=== PATIENT | female | born 1990 | race Caucasian/White ===

== ENCOUNTER 2019-03-26 08:54 | Emergency (ER) | payer OTHER ==
--- OUTSIDE RECORDS SUMMARY | 2019-03-26 09:06 | XMS REPORT | Continuity of Care Document ---
:1990 External Reference #:[id number] Author Name Misty Membreno, MS, MILK INSPECTOR-C, CNM (transmitted by agent of provider Sasha Colindres) Address [address] [place] [address] Care Team Providers Name Role Phone Guilherme Spencer MD - Surgery Care Team Information Watch Assembler [phone] Tiffanie Vallejo MD - Internal Medicine Care Team Information Watch Assembler [facility] Physical Therapy/[address] Care Team Information Watch Assembler Walter Robins MD - Endocrinology, Care Team Information Watch Assembler Diabetes & Metabolism Problems Active Problems Provider Date Nausea and vomiting Solis Chu M.D. Onset: 01/19/2017 Otitis media Solis Chu M.D. Onset: 01/19/2017 Social History Type Date Description Comments Sex Unknown ETOH Use Occasionally consumes alcohol Recreational Drug Use Denies Drug Use Tobacco Use Start: Unknown End: Patient is a former per pt, smoked about smoker 3 cigarettes daily. Smoking Status Reviewed: 02/01/19 Patient is a former per pt, smoked about smoker 3 cigarettes daily. Allergies, Adverse Reactions, Alerts Description No Known Drug Allergies Medications Active Medications SIG Qnty Indications Ordering Date Provider Ergocalciferol take one a week 14caps E55.9 Ratnasingam, 02/01/2019 1.25mg MD Esther (37176 Ut) Capsules Ondansetron HCL Take every 6 30tabs R11.0 Ratnasingam, 02/01/2019 4mg hours for nausea MD Esther Tablets Diazepam Take 1 hour 1tabs F43.0 Gagen, 03/02/2018 5mg Tablets before medical MS Misty, proceedure MILK INSPECTOR-C, CNM Zinc Take one every 30caps Z71.9 Gagen, 12/17/2017 30mg Capsules day MS Misty, MILK INSPECTOR-C, CNM Vitamin C take 2 in the 60units Z71.9 Gagen, 12/17/2017 500mg Chewtabs morning MS Misty, MILK INSPECTOR-C, CNM Cyclobenzaprine HCL TK 1 T PO bid PRF Unknown 10mg MSP Tablets Omeprazole by mouth every Unknown 10mg Capsules morning DR Ibuprofen 1 tab every 8hrs Unknown 800mg Tablets as needed Medications Administered in Office Medication SIG Qnty Indications Ordering Provider Date Depomedroxyporgesterone 150MG Macarena Membrenoline, 12/17/2017 Injection , MILK INSPECTOR-C, CNM PPD Injection Tiffanie Vallejo MD 04/13/2016 Immunizations CPT Code Status Date Vaccine Lot # [id number] Given 12/05/2015 Influenza Vaccine (Fluzone) Age 3 And Older [id number] Given 09/07/2015 Tdap injection U-MCV4 Given 04/08/2011 Meningococcal MCV4,Unspecified 64005 Given 04/12/2009 Hepatitis A Vaccine Pediatric/Adolescent Dosage 2 Dose Schedule 82521 Given 04/06/2008 Hepatitis A Vaccine Pediatric/Adolescent Dosage 2 Dose Schedule 54375 Given 01/04/2007 Gardasil 46038 Given 09/13/2006 Gardasil 23588 Given 07/12/2006 Gardasil U-MCV4 Given 10/30/2005 Meningococcal MCV4,Unspecified 67141 Given 08/27/2005 Tdap injection 12235 Given 07/28/1997 MMR Vaccine, Live, For Subcutaneous Use U-DTaP Given 07/27/1997 DTaP,Unspecified U-Polio Given 07/27/1997 Polio,Unspecified U-DTaP Given 09/10/1994 DTaP,Unspecified U-Polio Given 12/04/1993 Polio,Unspecified U-HIB Given 12/04/1993 Hib,Unspecified U-DTaP Given 12/04/1993 DTaP,Unspecified 81594 Given 12/04/1993 MMR Vaccine, Live, For Subcutaneous Use U-Polio Given 1992 Polio,Unspecified U-HIB Given 1992 Hib,Unspecified U-DTaP Given 1992 DTaP,Unspecified U-Polio Given 1992 Polio,Unspecified U-HIB Given 1992 Hib,Unspecified U-DTaP Given 1992 DTaP,Unspecified Vital Signs Date Vital Result Comment 02/01/2019 10:30am BP Systolic Sitting Left Arm 118 mmHg BP Diastolic Sitting Left Arm 84 mmHg Body Temperature 98.1 F Heart Rate 77 /min Respiratory Rate 18 /min Height 65 inches 5'5" Weight 190.00 lb BMI (Body Mass Index) 31.6 kg/m2 BSA (Body Surface Area) 1.94 m2 [place] body weight in kilograms 57 kg O2 % BldC Oximetry 99 % Ra 01/24/2019 6:57am Weight 170.00 lb Results Test Acquired Date Facility Test Result H/L Range Note Vitamin B12 02/01/2019 [facility] Vitamin B12 577 pg/mL Normal 193-986 1 And Folate [address] [place], [place] [id number] [phone] Folic Acid 11.5 ng/mL Normal 3.1-17.5 Comprehensive 02/01/2019 [facility] Glucose 86 mg/dL Normal 74-106 Metabolic Panel [address] [place] [address] [phone] BUN 11 mg/dL Normal 7-18 Creatinine 0.8 mg/dL Normal 0.6-1.3 Glom Filtration Rate, Estimate >60 mL/min >60 If >60 mL/min >60 2 BUN/Creat 13.7 ratio Sodium 137 mmol/L Normal 136-145 Potassium 4.2 mmol/L Normal 3.5-5.1 Chloride 106 mmol/L Normal 98-107 Carbon Dioxide 27 mmol/L Normal 21-32 Anion Gap 4 mEq/L Low 8-16 Calcium 9.3 mg/dL Normal 8.5-10.1 Total Protein 7.7 g/dL Normal 6.4-8.2 Albumin 4.2 g/dL Normal 3.4-5.0 Globulin 3.5 g/dL Normal 1.9-4.3 Alb/Glob 1.2 ratio Bilirubin,Total 0.3 mg/dL Normal 0.2-1.0 Sgot/Ast 12 U/L Low 15-37 3 SGPT/Alt 22 U/L Normal 12-78 Alkaline Phosphatase 120 U/L High 45-117 CBC W/Automated 02/01/2019 [facility] White Blood 9.7 K/uL Normal 3.1-10.[address] [place] [address] [phone] Red Blood Count 4.34 M/uL Normal 3.90-5.40 Hemoglobin 12.6 gm/dL Normal 11.6-15.8 Hematocrit 38.6 % Normal 36.0-46.1 Mean Cell Volume 88.9 fl Normal 80.9-99.0 Mean Corpuscular HGB 29.0 pg Normal 25.9-32.7 Mean Corpuscular HGB Conc 32.6 g/dL Normal 30.8-34.3 Platelet Count 441 K/uL High 155-360 Red Cell Distri Width SD 43.7 fl Normal 36-47 Red Cell Distri Width %CV 13.4 % Normal 11.7-14.4 Mean Platelet Volume 10.2 fl Normal 8.9-12.4 Neut% 64.7 % Normal 40.4-72.8 Lymph % 25.3 % Normal 20.0-42.0 [place] % 6.4 % Normal 4.3-13.2 Eo% 2.2 % Normal 0.0-6.6 Bas% 0.8 % Normal 0.0-1.1 Immature Grans 0.6 % Normal 0.0-5.0 NRBC % 0.0 /100WBC < 10/ 100 WBC Neut# 6.30 K/uL Normal 1.8-7.0 Lymph # 2.46 K/uL Normal 1.0-4.0 [place] # 0.62 K/uL Normal 0.3-0.9 Eos # 0.21 K/uL Normal 0.0-0.5 Baso # 0.08 K/uL Normal 0.0-0.1 Immature Grans Absolute 0.06 K/uL NRBC # 0.00 K/uL Alt [facility] 01/24/2019 N2N/CCD Import Alanine 21 12-78 Aminotransferase (Alt/SGPT) Ast SerPl-cCnc 01/24/2019 N2N/CCD Import Aspartate Amino 11 Low 15-37 Transf (Ast/Sgot) Bilirub 01/24/2019 N2N/CCD Import Total Bilirubin 0.3 0.2-1.0 SerPl-nc Albumin/Glob 01/24/2019 N2N/CCD Import Albumin/Globulin 1.0 SerPl Ratio Calcium 01/24/2019 N2N/CCD Import Calcium Level 9.1 8.5-10.1 SerPl-nc Co2 SerPl-sCnc 01/24/2019 N2N/CCD Import Carbon Dioxide Level 25 21-32 Chloride 01/24/2019 N2N/CCD Import Chloride Level 108 High 98-107 SerPl-sCnc Potassium 01/24/2019 N2N/CCD Import Potassium Level 3.7 3.5-5.1 SerPl-sCnc Sodium 01/24/2019 N2N/CCD Import Sodium Level 138 136-145 SerPl-sCnc BUN/Creat SerPl 01/24/2019 N2N/CCD Import BUN/Creatinine Ratio 11.2 GFR/Bsa 01/24/2019 N2N/CCD Import Estimated GFR >60 >60 pred.black () SerPl MDRD-ArVRat GFR/Bsa 01/24/2019 N2N/CCD Import Estimated GFR >60 >60 pred.non black (Non- SerPl MDRD-ArVRat BUN SerPl-mCnc 01/24/2019 N2N/CCD Import Blood Urea Nitrogen 9 7-18 Glucose 01/24/2019 N2N/CCD Import Glucose Screen 86 74-106 [facility] Laboratory test 01/24/2019 [facility] Magnesium 2.0 Normal 1.6-2.6 [address] mg/[place] [address] [phone] Troponin-I < 0.015 ng/mL 5 Comprehensive 01/24/2019 [facility] Glucose 86 mg/dL Normal 74-106 Metabolic Panel [address] [place] [address] [phone] BUN 9 mg/dL Normal 7-18 Creatinine 0.8 mg/dL Normal 0.6-1.3 Glom Filtration Rate, Estimate >60 mL/min >60 If >60 mL/min >60 6 BUN/Creat 11.2 ratio Sodium 138 mmol/L Normal 136-145 Potassium 3.7 mmol/L Normal 3.5-5.1 Chloride 108 mmol/L High 98-107 Carbon Dioxide 25 mmol/L Normal 21-32 Anion Gap 5 mEq/L Low 8-16 Calcium 9.1 mg/dL Normal 8.5-10.1 Total Protein 8.0 g/dL Normal 6.4-8.2 Albumin 4.0 g/dL Normal 3.4-5.0 Globulin 4.0 g/dL Normal 1.9-4.3 Alb/Glob 1.0 ratio Bilirubin,Total 0.3 mg/dL Normal 0.2-1.0 Sgot/Ast 11 U/L Low 15-37 7 SGPT/Alt 21 U/L Normal 12-78 Alkaline Phosphatase 123 U/L High 45-117 1 R20.2 Z71.41 2 Note: Persistent reduction for 3 months or more in an eGFR <60 mL/min/1.73 m2 defines CKD. Patients with eGFR values >/=60 mL/min/1.73 m2 may also have CKD if evidence of persistent proteinuria is present. The original MDRD equation for estimated GFR is not valid for patients less than 18 years of age. Additional information may be found at www.kdoqi.org. 3 Values below the stated reference ranges of AST and ALT can be seen in normal populations. Clinical correlation is suggested. 4 LT HAND TINGLING GOING UP ARM 5 0.0 - 0.045 ng/mL: Normal 0.046 - 0.5 ng/mL: Suggestive 0.6 - 1.5 ng/mL: Consistent 6 Note: Persistent reduction for 3 months or more in an eGFR <60 mL/min/1.73 m2 defines CKD. Patients with eGFR values >/=60 mL/min/1.73 m2 may also have CKD if evidence of persistent proteinuria is present. The original MDRD equation for estimated GFR is not valid for patients less than 18 years of age. Additional information may be found at www.kdoqi.org. 7 Values below the stated reference ranges of AST and ALT can be seen in normal populations. Clinical correlation is suggested. Procedures Description No Information Available Medical Devices Description No Information Available Encounters Type Date Location Provider Dx Diagnosis Office Visit 02/01/2019 [facility], R20.2 Paresthesia of skin 10:30a Office MS Misty, MILK INSPECTOR-C, CNM R29.3 Abnormal posture E55.9 Vitamin D deficiency, unspecified R11.0 Nausea R51 Headache Z71.41 Alcohol abuse counseling and surveillance of alcoholic Z28.21 Immunization not carried out because of patient refusal Assessments Date Code Description Provider 02/01/2019 R20.2 Paresthesia of hand Misty Membreno, MS, MILK INSPECTOR-C, CNM 02/01/2019 R29.3 Abnormal posture Misty Membreno, MS, MILK INSPECTOR-C, CNM 02/01/2019 E55.9 Vitamin D deficiency, unspecified Haseeb, Misty, MS, MILK INSPECTOR-C, CNM 02/01/2019 R11.0 Nausea Macarena Membrenoline, MS, MILK INSPECTOR-C, CNM 02/01/2019 R51 Headache Misty Membreno, MS, MILK INSPECTOR-C, CNM 02/01/2019 Z71.41 Alcohol abuse counseling and Misty Membreno, MS, MILK INSPECTOR-C, surveillance of alcoholic CNM 02/01/2019 Z28.21 Immunization not carried out because Misty Membreno, MS , MILK INSPECTOR-C, of patient refusal CNM Plan of Treatment Future Appointment(s):02/13/2019 9:00 am - Misty Membreno, MS, MILK INSPECTOR-C, CNM at Primary Care Aqwgnc0805/03/2019 3:30 pm - Misty Membreno, MS, MILK INSPECTOR-C, CNM at Primary Care Fpiboz1102/01/2019 - Misty Membreno, MS, MILK INSPECTOR-C, CNMR20.2 Paresthesia of handComments:--labs in hospital calcium, MG, CBC wnl. Had TSH in 06/2018-nl--will need B 12, folate --Differentialdiagnosis: poor posture leading to radiculopathy CTS or epicondylitis--Will trial PT and get EMG ifnot resolved with PTReferral:[facility] Physical Therapy/[address],R29.3 Abnormal postureComments:--Discussed poor posture leading to radiculopathy --Discussed exercises--Refer to PTE55.9 Vitamin D deficiency, unspecifiedNew Medication: Ergocalciferol 1.25 mg (92024 Ut) - take one a weekNew Labs:Vitamin D,25-Hydroxy , Scheduled: 04/26/19CBC W/Automated Diff, Scheduled: 04/26/19Comprehensive Metabolic Panel, Scheduled: 04/26/19R11.0 NauseaNew Medication:Ondansetron HCL 4 mg - Take every 6 hours for nauseaComments:-- Patient does not want test after discussion--Zofran--Eleva diet, increase fluids--Monitor and RTO in 1 week for F/UR51 HeadacheComments:--Tylenol, or Motrin--Hydrate--Monitor--RTO for F/U in 1 weekZ71.41 Alcohol abuse counseling and surveillance of alcoholicComments:--alk phos was 123 in ER-- Patient admits to binge drinking on w/e -- counseled on binge tcmnwrkeU66.21 Immunization not carried out because of patient refusalComments:--Patient refused Flu vaccination today.-- Encourage good hand hygiene, Vitamin C 1 GM QDAY, Zinc 30 mg QDAYAllFollow up:-- Return to office in 3 months. Please get labs 1 week prior to office visit. -- RTO in 1 week for F/U H/A, nausea --PT for left arm possible carpal tunnel, epicondylitis Functional Status Functional Condition Comment Date Status Independent with all ADL's Active Mental Status Description No Information Available Referrals Refer to Reason for Referral Status Appt Date [facility] Physical Therapy/[place] left arm pins and needles Scheduled 02/08/2019 Ave --Differential diagnosis: poor posture leading to radiculopathy CTS or epicondylitis [address] [place] [address] [phone]
--- OUTSIDE RECORDS SUMMARY | 2019-03-26 09:06 | XMS REPORT | Continuity of Care Document ---
:1990 External Reference #:[id number] Author Name Misty Membreno, MS, SILVER SPRAY WORKER-C, CNM (transmitted by agent of provider Sasha Colindres) Address [address] [place] [address] Care Team Providers Name Role Phone Guilherme Spencer MD - Surgery Care Team Information Safety Net Maker [phone] [facility] Care Team Information Safety Net Maker Walter Robins MD - Endocrinology, Care Team Information Safety Net Maker Diabetes & Metabolism Problems Active Problems Provider Date Nausea and vomiting Solis Chu M.D. Onset: 01/19/2017 Otitis media Solis Chu M.D. Onset: 01/19/2017 Social History Type Date Description Comments Sex Unknown ETOH Use Occasionally consumes alcohol Recreational Drug Use Denies Drug Use Tobacco Use Start: Unknown End: Patient is a former per pt, smoked about smoker 3 cigarettes daily. Smoking Status Reviewed: 02/13/19 Patient is a former per pt, smoked about smoker 3 cigarettes daily. Allergies, Adverse Reactions, Alerts Description No Known Drug Allergies Medications Active Medications SIG Qnty Indications Ordering Date Provider Fluticasone Propionate 2 sprays 48gm H69.93 Ratnasingam, 02/13/2019 intranasal every MD Esther 50mcg/Act Suspension day Wrist/Thumb Wear brace while 1units R20.2 Stewart Hernandez, 02/13/2019 Splint/Left Medium at work [facility] Ergocalciferol take one a week 14caps E55.9 Ratnasingam, 02/01/2019 1.25mg MD Esther (79123 Ut) Capsules Ondansetron HCL Take every 6 30tabs R11.0 Ratnasingam, 02/01/2019 4mg hours for nausea MD Esther Tablets Diazepam Take 1 hour 1tabs F43.0 Gagen, 03/02/2018 5mg Tablets before medical MS Misty, proceedure SILVER SPRAY WORKER-Bibiana, MOHAN Zinc Take one every 30caps Z71.9 Gagen, 12/17/2017 30mg Capsules day MS Misty, SILVER SPRAY WORKER-C, MOHAN Vitamin C take 2 in the 60units Z71.9 Gagen, 12/17/2017 500mg Chewtabs morning MS Misty, SILVER SPRAY WORKER-C, MOHAN Cyclobenzaprine HCL TK 1 T PO bid PRF Unknown 10mg MSP Tablets Omeprazole by mouth every Unknown 10mg Capsules morning DR Ibuprofen 1 tab every 8hrs Unknown 800mg Tablets as needed Medications Administered in Office Medication SIG Qnty Indications Ordering Provider Date Depomedroxyporgesterone 150MG HaseebMisty, 12/17/2017 Injection KALPANA SMALL CNM PPD Injection Tiffanie Vallejo MD 04/13/2016 Immunizations CPT Code Status Date Vaccine Lot # [id number] Given 12/05/2015 Influenza Vaccine (Fluzone) Age 3 And Older [id number] Given 09/07/2015 Tdap injection U-MCV4 Given 04/08/2011 Meningococcal MCV4,Unspecified 68759 Given 04/12/2009 Hepatitis A Vaccine Pediatric/Adolescent Dosage 2 Dose Schedule 03832 Given 04/06/2008 Hepatitis A Vaccine Pediatric/Adolescent Dosage 2 Dose Schedule 26583 Given 01/04/2007 Gardasil 54850 Given 09/13/2006 Gardasil 94302 Given 07/12/2006 Gardasil U-MCV4 Given 10/30/2005 Meningococcal MCV4,Unspecified 90713 Given 08/27/2005 Tdap injection 31803 Given 07/28/1997 MMR Vaccine, Live, For Subcutaneous Use U-DTaP Given 07/27/1997 DTaP,Unspecified U-Polio Given 07/27/1997 Polio,Unspecified U-DTaP Given 09/10/1994 DTaP,Unspecified U-Polio Given 12/04/1993 Polio,Unspecified U-HIB Given 12/04/1993 Hib,Unspecified U-DTaP Given 12/04/1993 DTaP,Unspecified 66829 Given 12/04/1993 MMR Vaccine, Live, For Subcutaneous Use U-Polio Given 1992 Polio,Unspecified U-HIB Given 1992 Hib,Unspecified U-DTaP Given 1992 DTaP,Unspecified U-Polio Given 1992 Polio,Unspecified U-HIB Given 1992 Hib,Unspecified U-DTaP Given 1992 DTaP,Unspecified Vital Signs Date Vital Result Comment 02/13/2019 8:54am BP Systolic 118 mmHg BP Diastolic 78 mmHg Body Temperature 96.9 F Heart Rate 70 /min Respiratory Rate 18 /min Height 65 inches 5'5" Weight 191.00 lb BMI (Body Mass Index) 31.8 kg/m2 BSA (Body Surface Area) 1.94 m2 [place] body weight in kilograms 57 kg O2 % BldC Oximetry 100 % 02/01/2019 10:30am BP Systolic Sitting Left Arm 118 mmHg BP Diastolic Sitting Left Arm 84 mmHg Body Temperature 98.1 F Heart Rate 77 /min Respiratory Rate 18 /min Height 65 inches 5'5" Weight 190.00 lb BMI (Body Mass Index) 31.6 kg/m2 BSA (Body Surface Area) 1.94 m2 [place] body weight in kilograms 57 kg O2 % BldC Oximetry 99 % Ra Results Test Acquired Date Facility Test Result H/L Range Note Vitamin B12 02/01/2019 [facility] Vitamin B12 577 pg/mL Normal 193-986 1 And Folate [address] [place], [place] [id number] [phone] Folic Acid 11.5 ng/mL Normal 3.1-17.5 Comprehensive 02/01/2019 [facility] Glucose 86 mg/dL Normal 74-106 Metabolic Panel [address] [place] [address] [phone] BUN 11 mg/dL Normal 7-18 Creatinine 0.8 [...] 120 U/L High 45-117 CBC W/Automated 02/01/2019 [facility] White Blood 9.7 K/uL Normal 3.1-10.[address] Count [place], [place] [address] [phone] Red Blood Count 4.34 M/uL Normal 3.90-5.40 [...] 40.4-72.8 Lymph % 25.3 % Normal 20.0-42.0 [place] % 6.4 % Normal 4.3-13.2 Eo% 2.2 % Normal 0.0-6.6 Bas% 0.8 % Normal 0.0-1.1 Immature Grans 0.6 % Normal 0.0-5.0 NRBC % 0.0 /100WBC < 10/ 100 WBC Neut# 6.30 K/uL Normal 1.8-7.0 Lymph # 2.46 K/uL Normal 1.0-4.0 [place] # 0.62 K/uL Normal 0.3-0.9 Eos # 0.21 K/uL Normal 0.0-0.5 Baso # 0.08 K/uL Normal 0.0-0.1 Immature Grans Absolute 0.06 K/uL NRBC # 0.00 K/uL Alt SerPl-cCnc 01/24/2019 N2N/CCD Import Alanine 21 12-78 Aminotransferase (Alt/SGPT) Ast SerPl-cCnc 01/24/2019 N2N/CCD Import Aspartate Amino 11 Low 15-37 Transf (Ast/Sgot) Bilirub 01/24/2019 N2N/CCD Import Total Bilirubin 0.3 0.2-1.0 SerPl-nc Albumin/Glob 01/24/2019 N2N/CCD Import Albumin/Globulin 1.0 SerPl Ratio Calcium 01/24/2019 N2N/CCD Import Calcium Level 9.1 8.5-10.1 SerP-nc Co2 SerPl-sCnc 01/24/2019 N2N/CCD Import Carbon Dioxide [...] 01/24/2019 N2N/CCD Import Glucose Screen 86 74-106 SerPl-nc Laboratory test 01/24/2019 [facility] Magnesium 2.0 Normal 1.6-2.6 [address] mg/[place] [address] [phone] Troponin-I < 0.015 ng/mL 5 Comprehensive 01/24/2019 [facility] Glucose 86 mg/dL Normal 74-106 Metabolic Panel [address] [place] [address] [phone] BUN 9 mg/dL Normal 7-18 Creatinine 0.8 [...] Haseeb, R20.2 Paresthesia of skin 10:30a Office Misty, MS, SILVER SPRAY WORKER-C, CNM R29.3 Abnormal posture E55.9 Vitamin D deficiency, unspecified R11.0 Nausea R51 Headache Z71.41 Alcohol abuse counseling and surveillance of alcoholic Z28.21 Immunization not carried out because of patient refusal Assessments Date Code Description Provider 02/13/2019 R20.2 Paresthesia of hand Gagen, Misty, MS, SILVER SPRAY WORKER-C, CNM 02/13/2019 E55.9 Vitamin D deficiency, unspecified Gagen, Misty, MS, SILVER SPRAY WORKER-C, CNM 02/13/2019 R11.0 Nausea Gagen, Misty, MS, SILVER SPRAY WORKER-C, CNM 02/13/2019 R51 Headache Gagen, Misty, MS, SILVER SPRAY WORKER-C, CNM 02/13/2019 H69.93 Unspecified Eustachian tube Gagen, Misty, MS, SILVER SPRAY WORKER-C, disorder, bilateral CNM 02/13/2019 Z71.41 Alcohol abuse counseling and Gagen, Misty, MS, SILVER SPRAY WORKER-C, surveillance of alcoholic CNM 02/01/2019 R20.2 Paresthesia of hand Gagen, Misty, MS, SILVER SPRAY WORKER-C, CNM 02/01/2019 R29.3 Abnormal posture Gagen, Misty, MS, SILVER SPRAY WORKER-C, CNM 02/01/2019 E55.9 Vitamin D deficiency, unspecified Gagen, Misty, MS, SILVER SPRAY WORKER-C, CNM 02/01/2019 R11.0 Nausea Gagen, Misty, MS, SILVER SPRAY WORKER-C, CNM 02/01/2019 R51 Headache Gagen, Misty, MS, SILVER SPRAY WORKER-C, CNM 02/01/2019 Z71.41 Alcohol abuse counseling and Gagen, Misty, MS, SILVER SPRAY WORKER-C, surveillance of alcoholic CNM 02/01/2019 Z28.21 Immunization not carried out because Misty Membreno, MS , SILVER SPRAY WORKER-C, of patient refusal CNM Plan of Treatment Future Appointment(s):03/27/2019 10:30 am - Misty Membreno, MS, SILVER SPRAY WORKER-C, CNM at Primary Care Mquqaa4705/03/2019 3:30 pm - Misty Membreno, MS, SILVER SPRAY WORKER-C, CNM at Primary Care [id number]/13/2019 - Misty Membreno, MS, SILVER SPRAY WORKER-C, CNMR20.2 Paresthesia of handNew Medication:Wrist/Thumb Splint/Left Medium - Wear brace while at workComments:--labs in hospital calcium, MG, CBC wnl. Had TSH in 06/2018 -nl-- B 12, folate normal. TSH on 07/05 was 1.250--Differential diagnosis: poor posture leading to radiculopathy CTS or epicondylitis--Will trial PT appointment is made on [address]--Will get EMG if not resolved with PTE55.9 Vitamin D deficiency, unspecifiedComments:--Uncontrolled, continue High dose vitamin D --Vitamin D in 07/05/2018 was 1.25R11.0 NauseaComments:-- Patient does not want test after discussion--Controlled, continue Zofran prn-- [place] diet, increase fluids--[id number] HeadacheComments:--Tylenol, Motrin, Excedrin --Hydrate--Monitor --If "worse H/A ever" go to ER--Had eye exam in nov 2018H69.93 Unspecified Eustachian tube disorder, bilateralNew Medication: Fluticasone Propionate 50 mcg/Act - 2 sprays intranasal every dayComments:-- Sudafed or krpsqhuwG19.41 Alcohol abuse counseling and surveillance of alcoholicComments:--Counseled--Will monitorAllFollow up:RTO in 6 weeks for F/U Functional Status Functional Condition Comment Date Status Independent with all ADL's Active Mental Status Description No Information Available Referrals Refer to Reason for Referral Status Appt Date [facility] Physical Therapy/[place] left arm pins and needles Scheduled 02/08/2019 Ave --Differential diagnosis: poor posture leading to radiculopathy CTS or epicondylitis [address] [place] [address] [phone]
--- OUTSIDE RECORDS SUMMARY | 2019-03-26 09:06 | XMS REPORT | Continuity of Care Document ---
:1990 External Reference #:[id number] Author Name Misty Membreno, MS, FLANGING MACHINE OPERATOR-C, CNM (transmitted by agent of provider Sasha Colindres) Address [address] [place] [address] Care Team Providers Name Role Phone Guilherme Spencer MD - Surgery Care Team Information Reexaminer [phone] Tiffanie Vallejo MD - Internal Medicine Care Team Information Reexaminer [phone] [facility] Physical Therapy/[address] Care Team Information Reexaminer [phone] Walter Robins MD - Endocrinology, Care Team Information Reexaminer Diabetes & Metabolism Problems Active Problems Provider [...] sprays 48gm H69.93 Ratnasingam, 02/13/2019 intranasal every Shamanthy, 50mcg/Act Suspension day Wrist/Thumb Wear brace while 1units R20.2 Stewart Hernandez, 02/13/2019 Splint/Left Medium at work MD Cameron Ergocalciferol take one a week 14caps E55.9 Ratnasingam, 02/01/2019 1.25mg MD Esther ([address] Ut) Capsules Ondansetron HCL Take every 6 30tabs R11.0 Ratnasingam, 02/01/2019 4mg hours for nausea MD Esther Tablets Diazepam Take 1 hour 1tabs F43.0 Gagen, 03/02/2018 5mg Tablets before medical MS Misty, proceedure FLANGING MACHINE OPERATOR-MOHAN Mccarty Zinc Take one every 30caps Z71.9 Gagen, 12/17/2017 30mg Capsules day MS Misty, FLANGING MACHINE OPERATOR-CMOHAN Vitamin C take 2 in the 60units Z71.9 Gagen, 12/17/2017 500mg Chewtabs morning MS Misty FLANGING MACHINE OPERATOR-MOHAN Mccarty Cyclobenzaprine HCL TK 1 T PO bid PRF Unknown 10mg MSP Tablets Omeprazole by mouth every Unknown 10mg Capsules morning Ibuprofen 1 tab every 8hrs Unknown 800mg Tablets as needed Medications Administered in Office Medication SIG Qnty Indications Ordering Provider Date Depomedroxyporgesterone 150MG Misty Membreno, 12/17/2017 Injection KALPANA SMALL CNM PPD Injection Tiffanie Vallejo MD 04/13/2016 Immunizations CPT Code Status Date Vaccine Lot # [id number] Given 12/05/2015 Influenza Vaccine (Fluzone) Age 3 And Older [id number] 83972 Given 09/07/2015 Tdap injection U-MCV4 Given 04/08/2011 Meningococcal MCV4,Unspecified 83000 Given 04/12/2009 Hepatitis A Vaccine Pediatric/Adolescent Dosage 2 Dose Schedule 44571 Given 04/06/2008 Hepatitis A Vaccine Pediatric/Adolescent Dosage 2 Dose Schedule 46469 Given 01/04/2007 Gardasil 34064 Given 09/13/2006 Gardasil 22138 Given 07/12/2006 Gardasil U-MCV4 Given 10/30/2005 Meningococcal MCV4,Unspecified 25021 Given 08/27/2005 Tdap injection 52914 Given 07/28/1997 MMR Vaccine, Live, For Subcutaneous Use U-DTaP Given 07/27/1997 DTaP,Unspecified U-Polio Given 07/27/1997 Polio,Unspecified U-DTaP Given 09/10/1994 DTaP,Unspecified U-Polio Given 12/04/1993 Polio,Unspecified U-HIB Given 12/04/1993 Hib,Unspecified U-DTaP Given 12/04/1993 DTaP,Unspecified 59881 Given 12/04/1993 MMR Vaccine, Live, For Subcutaneous [...] kg/m2 BSA (Body Surface Area) 1.94 m2 [place] body weight in kilograms 57 kg O2 % BldC Oximetry 100 % 02/01/2019 10:30am BP Systolic Sitting Left Arm 118 mmHg BP Diastolic Sitting Left Arm 84 mmHg Body Temperature 98.1 F Heart Rate 77 /min Respiratory Rate 18 /min Height 65 inches 5'5" Weight 190.00 lb BMI (Body Mass Index) 31.6 kg/m2 BSA (Body Surface Area) 1.94 m2 [place] body weight in kilograms 57 kg O2 % BldC Oximetry 99 % Ra Results Test Acquired Date Facility Test Result H/L Range Note Vitamin B12 02/01/2019 [facility] Vitamin B12 577 pg/mL Normal 193-986 1 And Folate [address] [place], [place] [id number] [phone] Folic Acid 11.5 ng/mL Normal 3.1-17.5 Comprehensive 02/01/2019 [facility] Glucose 86 mg/dL Normal 74-106 Metabolic Panel [address] [place], [place] [id number] [phone] BUN 11 mg/dL Normal 7-18 Creatinine 0.8 [...] 120 U/L High 45-117 CBC W/Automated 02/01/2019 [facility] White Blood 9.7 K/uL Normal 3.1-10.[address] Count [place], [place] [id number] [phone] Red Blood Count 4.34 M/uL Normal 3.90-5.40 [...] 40.4-72.8 Lymph % 25.3 % Normal 20.0-42.0 [place] % 6.4 % Normal 4.3-13.2 Eo% 2.2 % Normal 0.0-6.6 Bas% 0.8 % Normal 0.0-1.1 Immature Grans 0.6 % Normal 0.0-5.0 NRBC % 0.0 /100WBC < 10/ 100 WBC Neut# 6.30 K/uL Normal 1.8-7.0 Lymph # 2.46 K/uL Normal 1.0-4.0 [place] # 0.62 K/uL Normal 0.3-0.9 Eos # [...] 01/24/2019 N2N/CCD Import Glucose Screen 86 74-[facility] 01/24/2019 [facility] Magnesium 2.0 Normal 1.6-2.6 [address] mg/dL [place], [place] [address] [phone] Troponin-I < 0.015 ng/mL 5 Comprehensive 01/24/2019 [facility] Glucose 86 mg/dL Normal 74-106 Metabolic Panel [address] [place] [address] [phone] BUN 9 mg/dL Normal 7-18 Creatinine 0.8 [...] Dx Diagnosis Office Visit 02/01/2019 [facility] Gagen, R20.2 Paresthesia of skin 10:30a Office Misty, MS, FLANGING MACHINE OPERATOR-C, CNM R29.3 Abnormal posture E55.9 Vitamin D deficiency, unspecified R11.0 Nausea R51 Headache Z71.41 Alcohol abuse counseling and surveillance of alcoholic Z28.21 Immunization not carried out because of patient refusal Assessments Date Code Description Provider 02/13/2019 R20.2 Paresthesia of hand Gagen, Misty, MS, FLANGING MACHINE OPERATOR-C, CNM 02/13/2019 E55.9 Vitamin D deficiency, unspecified Gagen, Misty, MS, FLANGING MACHINE OPERATOR-C, CNM 02/13/2019 R11.0 Nausea Gagen, Misty, MS, FLANGING MACHINE OPERATOR-C, CNM 02/13/2019 R51 Headache Gagen, Misty, MS, FLANGING MACHINE OPERATOR-C, CNM 02/13/2019 H69.93 Unspecified Eustachian tube Gagen, Misty, MS, FLANGING MACHINE OPERATOR-C, disorder, bilateral CNM 02/13/2019 Z71.41 Alcohol abuse counseling and Gagen, Misty, MS, FLANGING MACHINE OPERATOR-C, surveillance of alcoholic CNM 02/01/2019 R20.2 Paresthesia of hand Gagen, Misty, MS, FLANGING MACHINE OPERATOR-C, CNM 02/01/2019 R29.3 Abnormal posture Gagen, Misty, MS, FLANGING MACHINE OPERATOR-C, CNM 02/01/2019 E55.9 Vitamin D deficiency, unspecified Gagen, Misty, MS, FLANGING MACHINE OPERATOR-C, CNM 02/01/2019 R11.0 Nausea Gagen, Misty, MS, FLANGING MACHINE OPERATOR-C, CNM 02/01/2019 R51 Headache Gagen, Misty, MS, FLANGING MACHINE OPERATOR-C, CNM 02/01/2019 Z71.41 Alcohol abuse counseling and Haseeb Misty, MS, FLANGING MACHINE OPERATOR-C, surveillance of alcoholic CNM 02/01/2019 Z28.21 Immunization not carried out because Haseeb Misty, MS , FLANGING MACHINE OPERATOR-C, of patient refusal CNM Plan of Treatment Future Appointment(s):03/27/2019 10:30 am - Misty Membreno, MS, FLANGING MACHINE OPERATOR-C, CNM at Primary Care [id number]/03/2019 3:30 pm - Misty Membreno, MS, FLANGING MACHINE OPERATOR-C, CNM at Primary Care [id number]/13/2019 - Misty Membreno, MS, FLANGING MACHINE OPERATOR-C, CNMR20.2 Paresthesia of handNew Medication:Wrist/Thumb Splint/Left Medium [...] want test after discussion--Controlled, continue Zofran prn-- [place] diet, increase fluids--[id number] HeadacheComments:--Tylenol, Motrin, Excedrin --Hydrate--Monitor --If "worse H/A ever" go to ER--Had eye exam in nov 2018H69.93 Unspecified Eustachian tube disorder, bilateralNew Medication: Fluticasone Propionate 50 mcg/Act - 2 sprays intranasal every dayComments:-- Sudafed or wyuktnczF01.41 Alcohol abuse counseling and surveillance of alcoholicComments:--Counseled--Will monitorAllFollow up:RTO in 6 weeks for F/U Functional Status Functional Condition Comment Date Status Independent with all ADL's Active Mental Status Description No Information Available Referrals Refer to Reason for Referral Status Appt Date [facility] Physical Therapy/[place] left arm pins and needles Scheduled 02/08/2019 Ave --Differential diagnosis: poor posture leading to radiculopathy CTS or epicondylitis [address] [place] [address] [phone]
[2019-03-26 09:16] VITALS: BP 118/74
--- NOTE | 2019-03-26 09:43 | UC ---
Respiratory Complaint HPI - HPI Summary HPI Summary: Pt presents with c/o URI like symptoms that began on 03/22/19. Pt has not been taking any OTC medications to manage her symptoms and believe that her "breathing " is getting worse. - History of Current Complaint Chief Complaint: UCRespiratory Stated Complaint: FEVER, CONGESTION Time Seen by Provider: 03/26/19 09:21 Hx Obtained From: Patient Hx Last Menstrual Period: 03/25/2019 ?: No Onset/Duration: Sudden Onset, Lasting Days, Still Present Timing: Constant Severity Initially: Mild Severity Currently: Mild Pain Intensity: 5 Character: Cough: Nonproductive Associated Signs And Symptoms: Positive: URI, Nasal Congestion - Risk Factors Pulmonary Embolism Risk Factors: Negative Cardiac Risk Factors: Negative Pseudomonas Risk Factors: Negative Tuberculosis Risk Factors: Negative - Allergies/Home Medications Allergies/Adverse Reactions: Allergies Allergy/AdvReac Type Severity Reaction Status Date / Time No Known Allergies Allergy Verified 03/26/19 09:11 PMH/Surg Hx/FS Hx/Imm Hx Previously Healthy: Yes - Surgical History Surgical History: Yes Surgery Procedure, Year, and Place: T&A, 2018, [place]; Appendectomy, ~2015, [place] - Family History Known Family History: Positive: Non-Contributory - Social History Occupation: Employed Full-time Lives: With Family Alcohol Use: Occasionally Substance Use Type: None Smoking Status (MU): Never Smoked Tobacco Have You Smoked in the Last Year: No Review of Systems All Other Systems Reviewed And Are Negative: Yes Constitutional: Positive: Chills, Fatigue Skin: Positive: Negative Eyes: Positive: Negative ENT: Positive: Sinus Congestion Respiratory: Positive: Cough Cardiovascular: Positive: Negative Gastrointestinal: Positive: Negative Genitourinary: Positive: Negative Motor: Positive: Negative Neurovascular: Positive: Negative Musculoskeletal: Positive: Negative Neurological: Positive: Negative Psychological: Positive: Negative Is Patient Immunocompromised?: No Physical Exam Triage Information Reviewed: Yes Appearance: Ill-Appearing Vital Signs: Initial Vital Signs Temp 98.4 F 03/26/19 09:10 Pulse 81 03/26/19 09:10 Resp 16 03/26/19 09:10 BP 118/74 03/26/19 09:10 Pulse Ox 100 03/26/19 09:10 Vital Signs Reviewed: Yes Eye Exam: Normal ENT: Positive: Nasal congestion Dental Exam: Normal Neck exam: Normal Respiratory Exam: Normal Cardiovascular Exam: Normal Musculoskeletal Exam: Normal Neurological Exam: Normal Psychological Exam: Normal Skin Exam: Normal Respiratory Course/Dx - Differential Dx/Diagnosis Differential Diagnosis/HQI/PQRI: Bronchitis, Influenza Provider Diagnosis: Viral syndrome Discharge ED - Sign-Out/Discharge Documenting (check all that apply): Patient Departure All imaging exams completed and their final reports reviewed: No Studies - Discharge Plan Condition: Stable Disposition: HOME Prescriptions: Benzonatate CAP* [Tessalon 100 MG CAP*] 100 mg PO Q8H PRN #30 cap PRN Reason: Cough Guaifenesin/Pseudoephedrne HCl [Mucinex D ER 600-60 mg Tablet] 1 each PO Q12H # 14 tab.er.12h predniSONE [Prednisone 20 MG TAB] 20 mg PO DAILY #4 tablet Patient Education Materials: Viral Syndrome (ED) Referrals: Misty Membreno CNM [Primary Care Provider] - If Needed - Billing Disposition and Condition Condition: STABLE Disposition: Home - Attestation Statements Provider Attestation: This patient was not seen by me. I was available for consult. Chart reviewed. ANANTH
[2019-03-26 09:50] LABS: Influenza A Molecular Negative (Negative); Influenza B Molecular Negative (Negative)
== END 2019-03-26 10:07 | disposition home or self-care (01) ==
LOC: UCCORT 08:54
DX: B34.9 Viral infection, unspecified (principal); R53.83 Other fatigue; R09.81 Nasal congestion; R05 Cough
CPT/HCPCS: 87651; 99212; G0463